=== PATIENT | male | born 1975 | race Caucasian/White ===

== ENCOUNTER → 2020-05-10 | Outpatient (CLI) | payer BC | LOC: KOH-I 13:00 | DX: S93.431A Sprain of tibiofibular ligament of right ankle, initial encounter (principal); R60.0 Localized edema; M65.871 Other synovitis and tenosynovitis, right ankle and foot | CPT/HCPCS: 73721 ==

== ENCOUNTER → 2021-02-26 | Outpatient (CLI) | payer BC | LOC: EXRD 13:54 | DX: M54.40 Lumbago with sciatica, unspecified side (principal); M47.816 Spondylosis without myelopathy or radiculopathy, lumbar region | CPT/HCPCS: 72100 ==

== ENCOUNTER → 2021-02-26 | Outpatient (CLI) | payer BC | LOC: EMI 12:52 | DX: M54.50 Low back pain, unspecified (principal); M51.36 Other intervertebral disc degeneration, lumbar region | CPT/HCPCS: 72148 ==

== ENCOUNTER → 2021-04-08 | Day surgery (SDC) | payer BC ==
[~2021-04-08] MED LIST: AMLODIPINE BESY10 MG PO; BUSPAR 10MG10 MG PO; CRESTOR 10 MG T10 MG PO; ESCITALOPRAM OX20 MG PO; IBUPROFEN800 MG PO; LORAZEPAM0.5 MG PO; LOSARTAN-HCTZ1 EAC2 PO; OMEPRAZOLE40 MG PO
== END | disposition home or self-care (01) ==
LOC: OR 06:49
DX: Z12.11 Encounter for screening for malignant neoplasm of colon (principal); M19.90 Unspecified osteoarthritis, unspecified site; K21.9 Gastro-esophageal reflux disease without esophagitis; I10 Essential (primary) hypertension; E78.00 Pure hypercholesterolemia, unspecified; Z87.891 Personal history of nicotine dependence; Z20.822 Contact with and (suspected) exposure to COVID-19
CPT/HCPCS: J2704; J7030

== ENCOUNTER → 2021-11-03 | Outpatient (CLI) | payer BC | LOC: EXRD 10-09 09:00 | DX: R79.89 Other specified abnormal findings of blood chemistry (principal); K76.0 Fatty (change of) liver, not elsewhere classified | CPT/HCPCS: 76700 ==